=== PATIENT | female | born 1985 | race Caucasian/White ===

== ENCOUNTER 2017-04-24 11:35 | Emergency (ER) | payer MEDICARE, MEDICAID, OTHER ==
[~2017-04-24] VITALS: Ht 165.1 cm; Wt 100.7 kg
[~2017-04-24 11:35] MED LIST: AZASAN100 MG; BUSPIRONE HCL15 M2 PO; CIMZIA400 MG/2 M SQ; CIMZIA400 MG/21 SQ; CIPRODEX OTIC7.5 ML OT; CLEOCIN HCL300 M1 PO; DARVOCET-N 1001 TAB PO; DEPO-PROVE150 MG/1 M IM; DOXYCYCLINE HY100 M5 PO; ERITROGEN TABLE1 TAB PO; FLAGYL500 M1 PO; FOLIC ACID1 M1 PO; H PO; HUMIRA40 MG/0.1; IBUPROFEN800 MG PO; IRON1 TA1 PO; LONOX; MERCAPTOPURINE50 MG PO; METHOTREXA25 MG/113 IM; NEOMYCIN POLYMY OT; NORCO 5-325 TA1 EACH PO; PERCOCET 5/3251 TAB PO; PREDNISONE20 M1 PO; PRENATAL1 EACH PO; PROTONIX40 M2 PO; REMACADE; VANCOMYCIN500 MG/VIA PO; WELLBUTRIN SR100 M2 PO; XANAX1 M1 PO; [UNRECOGNIZED DRUG - OTHER]; [UNRECOGNIZED DRUG - OTHER] PO; [UNRECOGNIZED DRUG - REMARK]
[2017-04-24 12:04] LABS: BASO % 0.4 % (0-2); BASO ABSOLUTE COUNT 0.1 tho/cmm (0.0-0.2); EOSINOPHIL ABSOLUTE COUNT 0.4 tho/cmm (0.0-0.7); HCT-HEMATOCRIT 39.5 % (34.0-49.0); HGB-HEMOGLOBIN 12.5 gm/dl (12.0-15.5); IMMATURE GRANULOCYTES ABSOLUTE 0.04 tho/cmm (0-0.03); IMMATURE GRANULOCYTES PERCENT 0.3 % (0-0.3); LYMPH % 27.2 % (20-45); LYMPH ABSOLUTE COUNT 3.9 tho/cmm (0.8-4.5); MCH (MEAN CORPUSCULAR HGB) 23.3 pg (28.0-32.0); MCHC MEAN CORPUSCULAR HGB CONC 31.6 % (32.0-36.0); MCV (MEAN CELL VOLUME) 73.6 fl (82.0-96.0); MEAN PLATELET VOLUME 9.6 cmc (9.4-12.4); MONO % 5.7 % (0-12); MONOCYTE ABSOLUTE COUNT 0.8 tho/cmm (0.0-1.2); NEUTROPHIL ABSOLUTE COUNT 9.2 tho/cmm (1.6-8.0); NEUTROPHIL-AUTOMATED 9.2 tho/cmm (1.6-8.0); NEUTROPHILS % 63.4 % (40-80); PLATELET COUNT 310 tho/cmm (150-450); RED BLOOD COUNT 5.37 mil/cmm (4.00-5.20); RED CELL DISTRIBUTION WIDTH 15.3 % (12.4-16.4); WHITE BLOOD COUNT 14.5 tho/cmm (4.0-10.0)
[2017-04-24 12:15] LABS: PREGNANCY-SERUM NEGATIVE (NEGATIVE)
[2017-04-24] MEDS ORDERED: FOLIC ACID1 M1 PO (12:15)
[2017-04-24] MEDS ORDERED: VITAMIN D31000 UNI3 PO (12:16)
[2017-04-24 12:20] LABS: ALB/GLOB RATIO 0.7 (0.8-2.0); ALBUMIN 3.1 g/dl (3.5-5.0); ALKALINE PHOSPHATASE 87 U/L (33-138); ALT/SGPT 16 U/L (12-78); ANION GAP 10 mmol/L (0-20); AST/SGOT 16 U/L (10-40); BILIRUBIN,TOTAL 0.3 mg/dl (0-1.5); BLOOD UREA NITROGEN 10 mg/dl (6-24); CALCIUM 8.2 mg/dl (8.5-10.5); CARBON DIOXIDE-VENOUS 24 mmol/L (22-32); CHLORIDE 108 mmol/l (96-110); CREATININE 0.87 mg/dl (0.50-1.10); GLUCOSE 114 mg/dL (70-110); LIPASE 311 U/L (73-393); POTASSIUM 3.8 mmol/L (3.7-5.1); SODIUM 138 mmol/L (135-145); eGFR VALUE FOR BLACK >90 mL/Min
[2017-04-24 12:28] LABS: C-REACTIVE PROTEIN <0.3 mg/dl (0-0.9)
[2017-04-24 13:08] LABS: URINE BILIRUBIN NEGATIVE (NEG); URINE BLOOD SMALL (NEG); URINE GLUCOSE (UA) NEGATIVE (NEG); URINE KETONE SMALL (NEG); URINE LEUKOCYTE ESTERASE POSITIVE (NEG); URINE NITRITE NEGATIVE (NEG); URINE PROTEIN NEGATIVE (NEG)
[2017-04-24 13:10] LABS: URINE APPEARANCE CLEAR; URINE COLOR YELLOW
[2017-04-24 13:15] LABS: URINE EPITHELIAL CELLS RARE /[HPF] (0-10); URINE RBC 0 /[HPF] (0-5); URINE WBC 0-2 /[HPF] (0-5)
[2017-04-24] MEDS ORDERED: BUPROPION XL300 M1 PO (13:24)
[2017-04-24] MEDS ORDERED: WELLBUTRIN XL150 M1 PO (13:24)
[2017-04-24] MEDS ORDERED: VENTOLIN HFA18 G2 INH (13:26)
[2017-04-24] MEDS ORDERED: ENTYVIO300 MG IV (13:27)
[2017-04-24] MEDS ORDERED: COMPAZINE10 MG PO (15:07)
[2017-04-24] MEDS ORDERED: NORCO 5-325 TA1 EACH PO (15:07)
== END 2017-04-24 15:25 ==
LOC: EDMED 11:35
PROVIDERS: Emergency Medicine
DX: R10.9 Unspecified abdominal pain (principal); R10.813 Right lower quadrant abdominal tenderness; G89.29 Other chronic pain; J18.9 Pneumonia, unspecified organism; F17.200 Nicotine dependence, unspecified, uncomplicated; R11.2 Nausea with vomiting, unspecified; Z87.19 Personal history of other diseases of the digestive system; Z90.49 Acquired absence of other specified parts of digestive tract; Z79.84 Long term (current) use of oral hypoglycemic drugs; Z79.899 Other long term (current) drug therapy
CPT/HCPCS: J2270; J2405; J7030